=== PATIENT | female | born 1990 | race Caucasian/White ===

== ENCOUNTER → 2016-12-13 | Outpatient (CLI) | payer OTHER ==
[~2016-12-13] MED LIST: AMETHIA LO TAB1 EACH PO; AMOXICILLIN
--- NOTE | ~2016-12-13 | MR122 ---
[facility] A Service of [facility] RADIOLOGY TEXT RESULTS PATIENT: BAILEE POZO LOCATION: [facility] : [birth year] UNIT #: [id number] AGE: [address]: Tino Wong II, MD SEX: F ORDER DR: [id number] [place] [id number] O MR#: [id number] Acc #: [id number] NAME: BAILEE POZO : 1990 SEX: F STUDY DATE/TIME: 12/13/2016 10:23 UNIT: [facility] [place] ROOM: STUDY DESCRIPTION: MR MRA Head Wo Contrast Attending Physician: Tino Wong II., M.D. Referring Physician: Tino Wong II., M.D. Ordering Physician: Tino Wong II., M.D. Primary Care Physician: Lalito Vasquez M.D. MRI CENTER REPORT This report is preliminary unless electronic signature is present. EXAM Intracranial MR angiogram HISTORY Anisocoria. Migraine headaches for the past several years. Visual loss approximately 1 month ago. TECHNIQUE MR angiographic imaging was performed from the skull base to [place]. FINDINGS The posterior circulation the left vertebral artery is dominant. The right terminates in AMANUEL PICA complex. The basilar artery is widely patent. In the anterior circulation there is no evidence of stenosis through the carotid siphons. There is no evidence of aneurysm, vascular malformation or major branch vessel occlusion. IMPRESSION Normal intracranial MR angiogram. Dictated by... Derick Rea M.D. THIS IS AN ELECTRONICALLY VERIFIED REPORT Derick Rea M.D. at 12/13/2016 4:28 PM TIFAFNY/dali TD: 12/13/2016 16:21 JOB #: [id number] [facility] A Service of [facility] RADIOLOGY TEXT RESULTS PATIENT: BAILEE POZO LOCATION: [facility] [place] : 88 UNIT #: [id number] AGE: [address]: Tino Wong II, MD SEX: F ORDER DR: MRI CENTER REPORT Page 1 of 1
--- NOTE | ~2016-12-13 | MR17 ---
[facility] A Service of [facility] RADIOLOGY TEXT RESULTS PATIENT: BAILEE POZO LOCATION: [facility] : 88 UNIT #: [id number] AGE: [address]: Tino Wong II, MD SEX: F ORDER DR: [id number] [address] [address] [id number] O MR#: [id number] Acc #: [id number] NAME: BAILEE POZO : 1990 SEX: F STUDY DATE/TIME: 12/13/2016 10:31 UNIT: [facility] ROOM: STUDY DESCRIPTION: MR Brain WWo Contrast Attending Physician: Tino Wong II., M.D. Referring Physician: Tino Wong II., M.D. Ordering Physician: Tino Wong II., M.D. Primary Care Physician: Lalito Vasquez M.D. MRI CENTER REPORT This report is preliminary unless electronic signature is present. EXAM Brain MRI with and without contrast. HISTORY Anisocoria. Headaches with visual loss for the past 3 weeks to a month. TECHNIQUE Multiplanar imaging of the brain was performed with and without contrast. 20 mL of MultiHance was used. COMPARISON STUDY From 05/15/16. FINDINGS On diffusion weighted images, there is no evidence of abnormal restricted diffusion to suggest a recent infarct. The routine brain images show no evidence of mass lesion, hemorrhage or edema. No white matter signal abnormalities are seen. Postcontrast imaging shows no abnormal enhancement. Extraaxial structures are unremarkable. IMPRESSION Normal. Dictated by... Derick Rea M.D. THIS IS AN ELECTRONICALLY VERIFIED REPORT Derick Rea M.D. at 12/17/2016 7:35 AM TIFFANY/kristin TD: 12/13/2016 16:37 [facility] A Service of [facility] RADIOLOGY TEXT RESULTS PATIENT: BAILEE POZO LOCATION: [facility] : [birth year] UNIT #: [id number] AGE: [address]: Tino Wong II, MD SEX: F ORDER DR: REINIER #: [id number] MRI CENTER REPORT Page 1 of 1
== END | disposition home or self-care (01) ==
LOC: SMRI 10:01
DX: H57.02 Anisocoria (principal)
CPT/HCPCS: 70544; 70553; A9581